=== PATIENT | female | born 1965 | race Caucasian/White ===

== ENCOUNTER 2020-04-05 09:11 | Emergency (ER) | payer OTHER, SELFPAY ==
[2020-04-05] MEDS ORDERED: Ondansetron ODT 4 MG TAB ONE (10:13)
[2020-04-05 11:29] LABS: Bilirubin Negative (Negative); Blood, Urine Small (Negative); Clarity Clear (Clear); Glucose, Urine (Dipstick) Negative (Negative); Ketone, Urine Negative (Negative); Leukocyte Negative (Negative); Nitrite Negative (Negative); Protein, Urine (Dipstick) Negative (Neg-Trace); Specific Gravity, Urine 1.015 (1.005-1.030); Urobilinogen 0.2 mg/dL (Less than 2); pH, Urine 5.5 (5.0-9.0)
[2020-04-05 11:34] LABS: Bacteria/HPF None Seen HPF (None Seen); RBC/HPF 0-3 HPF (0-3); Squamous Epithelial None Seen HPF (0-3); WBC/HPF None Seen HPF (0-3)
[2020-04-06 04:03] LABS: SARS-CoV-2 PCR by NAA DETECTED (NotDetected)
== END 2020-04-05 11:55 | disposition home or self-care (01) ==
LOC: NAV ERS 09:11
DX: U07.1 COVID-19 (principal); Z87.891 Personal history of nicotine dependence
CPT/HCPCS: 81003; 81015; 87635; 87804; 99283; Q0162; U0003; U0005

== ENCOUNTER 2021-07-23 10:03 | Emergency (ER) | payer OTHER, SELFPAY | END 2021-07-23 11:25 | disposition home or self-care (01) | LOC: NAV ERS 10:03 | DX: M79.672 Pain in left foot (principal); Z87.891 Personal history of nicotine dependence; W01.0XXA Fall on same level from slipping, tripping and stumbling without subsequent striking against object, initial encounter ==

== ENCOUNTER 2022-11-06 08:28 | Emergency (ER) | payer SELFPAY | END 2022-11-06 09:24 | disposition home or self-care (01) | LOC: NAV ERS 08:28 | DX: S16.1XXA Strain of muscle, fascia and tendon at neck level, initial encounter (principal); X50.3XXA Overexertion from repetitive movements, initial encounter; Y93.F2 Activity, caregiving, lifting; Y92.69 Other specified industrial and construction area as the place of occurrence of the external cause; Z87.891 Personal history of nicotine dependence | CPT/HCPCS: 99283 ==